=== PATIENT | female | born 1975 | race African-American/Black ===

== ENCOUNTER 2016-08-08 19:52 | Emergency (ER) | payer BC, OTHER ==
[~2016-08-08] VITALS: Ht 177.8 cm; Wt 84.0 kg
[2016-08-08] MEDS ORDERED: SODIUM CHLORIDE 0.9% 1,000 ML IV ONE (20:50)
[2016-08-08] MEDS ORDERED: MORPHINE SULFATE 4 MG/ML CPJ (NOT FOR IM USE) IV STA (20:50)
[2016-08-08] MEDS ORDERED: ONDANSETRON HCL 4MG/2ML VIAL IV STA (20:50)
[2016-08-08] MEDS ORDERED: KETOROLAC 30MG/ML VIAL IV ONE (21:00)
[2016-08-08 21:19] LABS: BASOPHILS % 0.7 % (0.0-2.0); EOSINOPHILS % 1.7 % (0.0-5.0); HEMATOCRIT. 38.1 % (36.0-48.0); HEMOGLOBIN. 12.9 g/dL (12.0-16.0); LYMPHOCYTES % 41.1 % (20.0-50.0); MEAN CORPUSCULAR VOLUME 82.9 fL (81.0-99.0); MEAN PLATELET VOLUME 8.6 fl (7.4-10.4); MONOCYTES % 5.3 % (2.0-8.0); NEUTROPHILS % 51.2 % (40.0-76.0); PLATELET 252 x1000/uL (130-400)
[2016-08-08 21:25] LABS: AMMONIA 20 uMol/L (<32); HCG SCREEN NEGATIVE
[2016-08-08 21:26] LABS: D-DIMER 1.04 mg/L FEU (<0.50); PROTHROMBIN TIME 10.4 sec
[2016-08-08 21:35] LABS: CARBON DIOXIDE 23 mEq/L (21-32); CHLORIDE 110 mEq/L (98-107); CREATINE KINASE 197 IU/L (26-192); ETHANOL BLOOD < 10 mg/dL; TROPONIN I < 0.02 ng/mL (0.00-0.04)
[2016-08-08 22:11] LABS: CLARITY URINE CLEAR (CLEAR); COLOR URINE YELLOW (YELLOW); GLUCOSE URINE NEGATIVE (NEGATIVE); KETONES URINE NEGATIVE (NEGATIVE); LEUKOCYTE ESTERASE URINE NEGATIVE (NEGATIVE); NITRITE URINE NEGATIVE (NEGATIVE); OCCULT BLOOD URINE NEGATIVE (NEGATIVE); PROTEIN URINE NEGATIVE (NEGATIVE); SPECIFIC GRAVITY URINE 1.008 (1.005-1.030); UROBILINOGEN URINE 0.2 E.U./dL (0.2-1.0)
[2016-08-08 22:24] LABS: *AMPHETAMINES SCREEN URINE NEGATIVE (NEGATIVE); *BARBITURATES SCREEN URINE NEGATIVE (NEGATIVE); *BENZODIAZEPINES SCREEN URINE NEGATIVE (NEGATIVE); *COCAINE SCREEN URINE NEGATIVE (NEGATIVE); CANNABINOID URINE SCREEN NEGATIVE (NEGATIVE); METHADONE URINE SCREEN NEGATIVE (NEGATIVE); OPIATES URINE SCREEN NEGATIVE (NEGATIVE); PHENCYCLIDINE URINE SCREEN NEGATIVE (NEGATIVE)
[2016-08-09] MEDS ORDERED: METOCLOPRAMIDE HCL 10MG/2ML VIAL IV ONE (00:15)
[2016-08-09] MEDS ORDERED: MORPHINE SULFATE 4 MG/ML CPJ (NOT FOR IM USE) IV ONE (00:15)
[2016-08-09 04:24] VITALS: BP 128/79
[2016-08-09] MEDS ORDERED: IOHEXOL-350 100 ML BOTTLE ONE (13:51)
[2016-08-09] MEDS ORDERED: SODIUM CHLORIDE 0.9% 10ML VIAL ONE (13:51)
== END 2016-08-09 04:27 | disposition home or self-care (01) ==
LOC: ER 20:52
DX: G43.909 Migraine, unspecified, not intractable, without status migrainosus (principal); M79.601 Pain in right arm; Z88.0 Allergy status to penicillin
CPT/HCPCS: 36415; 70450; 71010; 71275; 80053; 80305; 81003; 82140; 82550; 83880; 84443; 84484; 84703; 85025; 85379; 85610; 85651; 93005; 96361; 96374; 96375; 99285; A4216; G0482; J1885; J2270; J2405; J2765; J7030; Q9967